=== PATIENT | female | born 1980 | race Caucasian/White ===

== ENCOUNTER 2017-04-26 16:55 | Emergency (ER) | payer OTHER ==
[~2017-04-26] VITALS: Ht 162.6 cm; Wt 63.5 kg
--- NOTE | 2017-04-26 19:29 | PHYS DOC ---
General Chief Complaint: LOWER EXT PAIN Stated Complaint: LOWER EXTREMITY Time Seen by MD: 18:16 Source: patient Exam Limitations: no limitations Problems: History of Present Illness Initial Comments Patient is a 37-year-old female sent by Rebekah to the ED for further evaluation of back pain and leg pain. Patient states that on April 20 while trying to cone picker her dog and put him in the car she felt as if she pulled something in her low back. She describes pain across her lumbosacral region described as severe worse with certain movements but with no leg weakness or other neuro deficits. Approximately 48 hours ago her back pain resolved and she's had progressively worsening saddle anesthesia, severe pain running down the back of both legs left greater than right, some left leg weakness and feeling as if it would give out on her, and trouble controlling her bowels and bladder. Earlier today she was finally able to produce urine, thinking she was done she stood up and began to walk away from the toilet. Her spouse pointed out to her that she was not finished and was urinating as she walked. She denies other episodes of incontinence. Patient states that she's had fairly consistent low back pain since an epidural for childbirth this past July 26. She says that "they missed and had to stick 3 times" and she's had pain with low back stiffness at the epidural site since that time. 48 hours ago when her new back pain resolved her pain associated from her epidural resolved and she felt as if she had no more low back stiffness. She went to [place] for evaluation but was sent to our facility for further evaluation. On my evaluation the patient is standing as it is extremely uncomfortable to sit for any period of time. She bears most of her weight on her right leg, she has history of depression her only chronic medication is Wellbutrin. Timing/Duration: other Severity: severe Modifying Factors: worse with movement, improves with rest Associated Symptoms: weakness, other Past Medical History Medical History: other (depression) Surgical History: other (rectocele repair in 2014) Psychosocial History: depression Social History Smoker: non-smoker Alcohol: none Drugs: none Review of Systems Constitutional: denies chills, denies diaphoresis, denies fever, denies malaise , denies weakness Respiratory: denies cough, denies shortness of breath, denies wheezing Cardiovascular: denies chest pain, denies palpitations, denies syncope Gastrointestinal: denies abdominal pain, denies nausea, denies vomiting Musculoskeletal: see HPI, denies joint swelling, denies neck pain Psychiatric/Neurological: see HPI, denies headache Physical Exam General Appearance: WD/WN, mild distress Ear, Nose, Throat: hearing grossly normal, normal ENT inspection Neck: non-tender, supple Respiratory: normal breath sounds, no respiratory distress Cardiovascular: normal peripheral pulses, regular rate, rhythm Back: no CVA tenderness, no vertebral tenderness Extremities: non-tender, normal inspection, no pedal edema, no calf tenderness , other Neurologic/Psychiatric: 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 He confirmed that the patient will need MRI evaluation and that this could be a surgical matter. 1906: I discussed the patient with harvest contractor hospitalist Dr. Garvey [facility]. He agrees to accept the patient for MRI evaluation and neurology or neurosurgery consultation. 37-year-old previously healthy female with new low back pain, leg weakness, saddle anesthesia, and loss of bowel or bladder control. Syringomyelia highly suspected. Departure Time of Disposition: 19:28 Disposition: 02 [facility] H[facility]P Diagnosis: syringomyelia Additional Instructions: EMS transfer to [facility] Dr. garvey is accepting. MADISON GUZMAN DO Apr 26, 2017 19:29
[2017-04-26 20:20] VITALS: BP 127/83
== END 2017-04-26 21:02 | disposition short-term general hospital (02) ==
LOC: ER 16:55
DX: G95.0 Syringomyelia and syringobulbia (principal); R53.1 Weakness; F32.9 Major depressive disorder, single episode, unspecified
CPT/HCPCS: 99285